=== PATIENT | female | born 1990 | race African-American/Black ===

== ENCOUNTER 2016-12-17 11:22 | Emergency (ER) | payer SELFPAY ==
[~2016-12-17] VITALS: Ht 172.7 cm; Wt 93.9 kg
[2016-12-17] MEDS ORDERED: IV NORMAL SALINE 1,000ML 1,000 ML IV SCH (12:30)
[2016-12-17 12:35] LABS: BASO % 1 % (0-3); EOS # 0.1 x10^3/uL (0.0-0.7); EOS % 1 % (0-3); HEMATOCRIT 38.3 % (36.0-47.0); HEMOGLOBIN 13.2 g/dL (12.0-15.5); LYMPH # 1.8 x10^3/uL (1.0-4.8); LYMPH % 25 % (24-48); MEAN CORPUSCULAR HEMOGLOBIN 30 pg (25-35); MEAN CORPUSCULAR HGB CONC 35 g/dL (31-37); MEAN CORPUSCULAR VOLUME 88 fL (79-100); MONO # 0.4 x10^3/uL (0.0-1.1); MONO % 6 % (0-9); NEUT # 4.7 x10^3uL (1.8-7.7); NEUT % 67 % (31-73); PLATELET COUNT 301 x10^3/uL (140-400); RED BLOOD COUNT 4.36 x10^6/uL (3.50-5.40); RED CELL DISTRIBUTION WIDTH 13.2 % (11.5-14.5)
[2016-12-17 12:48] LABS: ALBUMIN 4.5 g/dL (3.4-5.0); CALCIUM 9.3 mg/dL (8.5-10.1); CREATININE 0.9 mg/dL (0.6-1.0); DIRECT BILIRUBIN 0.3 mg/dL (0.0-0.2); GFR 91.6; TOTAL BILIRUBIN 2.1 mg/dL (0.2-1.0); TOTAL PROTEIN 7.6 g/dL (6.4-8.2)
--- NOTE | 2016-12-17 13:08 | RAD ---
Indication cramping and clotting. Positive home test. Initially transabdominal scans were obtained. Initial transabdominal scans were supplemented with transvaginal scans. No quantitative hCG value is available time of the interpretation of this exam. The uterus measures approximately 10.6 x 6.3 x 5.9 cm. Within the uterus there is a fluid collection compatible with a gestational sac and there is a probable yolk sac. No definite pole or cardiac motion is seen. The sac size is suggestive of a 6 week 5 day gestation. The maternal ovaries appeared unremarkable. IMPRESSION: Probable early IUP of approximately 6-7 weeks. No definite pole is identified. Correlation with a quantitative hCG value advised. Follow-up ultrasound in a week to 10 days should also be considered.
--- NOTE | 2016-12-17 13:15 | PHYS DOC ---
General Chief Complaint: VAGINAL BLEEDING Stated Complaint: VAGINAL BLEEDING Time Seen by MD: 12:03 Source: patient Exam Limitations: no limitations Problems: History of Present Illness Initial Comments Patient is a 26-year-old female who states she had a positive home test now with vaginal bleeding. Patient states she is now 3 para 2, positive home test several weeks ago has not followed up with STEAM DRIER OPERATOR. She thinks her last period was October 26 but is uncertain. She states that today she had sudden onset suprapubic cramping, and that she started passing bright red blood and clots. She claims intermittent episodes of low back discomfort none currently. Pain is described as achy, moderate at its worst no worsening or relieving factors noted. No headache palpitations chest pain or trouble breathing, patient has history of her coagulability with DVTs and prior pregnancies. She states she's not smoking and is taking vitamins. She has an STEAM DRIER OPERATOR but hasn't gotten in for evaluation yet. She is unable to quantify how many pads she is using with the vaginal bleeding and denies any bleeding actively in the emergency department. Timing/Duration: 24 hours Severity: moderate Modifying Factors: improves with other Associated Symptoms: other Allergies: Coded Allergies: No Known Drug Allergies (Unverified , 12/17/16) Past Medical History Medical History: other (DVT in ) Surgical History: noncontributory Para: 2 : 3 LMP (Females 10-50): Social History Smoker: non-smoker Alcohol: none Drugs: none Review of Systems Constitutional: denies chills, denies diaphoresis, denies fever, denies malaise EENTM: denies eye pain, denies blurred vision, denies ear pain, denies nose pain, denies throat pain Respiratory: denies cough, denies orthopnea, denies shortness of breath, denies wheezing Cardiovascular: denies chest pain, denies palpitations, denies syncope Gastrointestinal: see HPI, denies diarrhea, denies nausea, denies vomiting Genitourinary: see HPI Musculoskeletal: see HPI, denies joint swelling, denies neck pain Psychiatric/Neurological: denies headache, denies numbness, denies paresthesia Hematologic/Lymphatic: see HPI Physical Exam General Appearance: WD/WN, no apparent distress Ear, Nose, Throat: hearing grossly normal, normal ENT inspection Neck: non-tender, supple Respiratory: normal breath sounds, no respiratory distress Cardiovascular: normal peripheral pulses, regular rate, rhythm Gastrointestinal: normal bowel sounds, non tender, soft Back: no CVA tenderness, no vertebral tenderness Extremities: non-tender, normal inspection, no pedal edema 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 PHYSICIAN: DESIRAE MERCHANT DO REASON: LMP 09/26, pelvic/R adnexa pain, passing clots/bleeding PROCEDURE: OB <14 WKS W/TV Indication cramping and clotting. Positive home test. Initially transabdominal scans were obtained. Initial transabdominal scans were supplemented with transvaginal scans. No quantitative hCG value is available time of the interpretation of this exam. The uterus measures approximately 10.6 x 6.3 x 5.9 cm. Within the uterus there is a fluid collection compatible with a gestational sac and there is a probable yolk sac. No definite pole or cardiac motion is seen. The sac size is suggestive of a 6 week 5 day gestation. The maternal ovaries appeared unremarkable. IMPRESSION: Probable early IUP of approximately 6-7 weeks. No definite pole is identified. Correlation with a quantitative hCG value advised. Follow-up ultrasound in a week to 10 days should also be considered. DICTATED AND SIGNED BY: HOPE SANDERS MD DATE: 12/17/16 9010 CC: PCP,SONIA; DESIRAE MERCHANT DO ~ Labs unremarkable, serum hCG is consistent with ultrasound findings. No new or progressive symptoms throughout the ED course. Patient's vital signs remained stable she denied any further bleeding or discomfort while in the department. The patient was advised to follow-up with her STEAM DRIER OPERATOR, her questions were answered she expressed agreement and understanding of the treatment plan. Departure Time of Disposition: 13:24 Disposition: 01 HOME, SELF-CARE Diagnosis: , threatened miscarriage Condition: STABLE Patient Instructions: Medicines During , Threatened Miscarriage, Easy- to-Read Additional Instructions: Please review the patient education materials given to you by the ED staff. Rest, no strenuous activity. Pelvic rest until doctor follow-up. Aggressive hydration with Gatorade or water. [id number] Tylenol as needed. Continue vitamins. You must follow-up with an STEAM DRIER OPERATOR specialist. Call to schedule STEAM DRIER OPERATOR follow-up in the next 7-10 days for recheck of symptoms and ultrasound. Return to ED with new or changing symptoms. DESIRAE MERCHANT DO Dec 17, 2016 13:15
[2016-12-17 14:00] VITALS: BP 121/69
== END 2016-12-17 14:05 | disposition home or self-care (01) ==
LOC: ER 11:22
DX: O20.0 Threatened abortion (principal); Z3A.01 Less than 8 weeks gestation of pregnancy
CPT/HCPCS: 36415; 76801; 76817; 80048; 80076; 81025; 84702; 85025; 99285-25

== ENCOUNTER 2016-12-19 12:46 | Emergency (ER) | payer SELFPAY ==
[2016-12-19 13:15] VITALS: BP 128/97
[2016-12-19 13:46] LABS: HEMOGLOBIN ISTAT 11.6 gm/dL; POTASSIUM ISTAT 3.9 mmol/L (3.5-5.0)
--- NOTE | 2016-12-19 14:23 | PHYS DOC ---
General Chief Complaint: VAGINAL BLEEDING Stated Complaint: VAGINAL BLEEDING, PREG Time Seen by MD: 12:59 Source: patient, old records Exam Limitations: no limitations Problems: History of Present Illness Initial Comments Patient is a 26-year-old female returning to the ED complaining of first trimester bleeding. Patient is 3 para 2 her last menstrual period was either late September or October. She began spotting several days ago and was seen at this facility on December 17. At that time her hemoglobin was 13.2, hCG was 28,662. Ultrasound revealed probable early intrauterine of 6-7 weeks gestation no pole noted. Repeat ultrasound was indicated. Patient states that she's been spotting and cramping as she was 2 days ago until this morning when she felt warmth on her leg and noticed an increase in bleeding going through the pad and soiling her jeans. No increase in discomfort , no passed tissue that she knows of. She says she was using "light" pads but now thinks she may have to increase. She's had no chest pain dyspnea on exertion headache palpitations vision changes or other findings associated with anemia. She denies any fever chills sweats or myalgias and other than the bleeding and mild cramping has overall been feeling well. Timing/Duration: 1-3 hours Severity: moderate Modifying Factors: improves with other Associated Symptoms: other Allergies: Coded Allergies: No Known Drug Allergies (Unverified , 12/17/16) Past Medical History Medical History: other Surgical History: noncontributory Para: 2 : 3 LMP (Females 10-50): ( [facility]) Social History Smoker: non-smoker Alcohol: none Drugs: none Review of Systems Constitutional: denies chills, denies diaphoresis, denies fever, denies malaise Respiratory: denies cough, denies shortness of breath Cardiovascular: denies chest pain, denies palpitations, denies syncope Gastrointestinal: see HPI, denies diarrhea, denies nausea, denies vomiting Genitourinary: see HPI Musculoskeletal: denies back pain, denies joint swelling, denies neck pain Psychiatric/Neurological: denies headache, denies numbness, denies paresthesia Hematologic/Lymphatic: see HPI Physical Exam General Appearance: WD/WN, no apparent distress Ear, Nose, Throat: hearing grossly normal, normal ENT inspection, normal pharynx Neck: non-tender, supple Respiratory: normal breath sounds, no respiratory distress Cardiovascular: normal peripheral pulses, regular rate, rhythm Gastrointestinal: normal bowel sounds, non tender, soft Back: normal inspection, no CVA tenderness Extremities: non-tender, normal inspection, no pedal edema 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 Landry's office to consult with him on the patient's treatment. He is not in the office I discussed the patient with Dr. Landry's nurse Tricia. After thorough discussion and physician consultation they requested the patient be discharged home. The patient is to call [phone] upon discharge today to schedule next available office visit. I discussed this with the patient and advised her to take paper copies of her ultrasound report as well as her labs follow-up as directed. She expressed agreement and understanding of the treatment plan. Departure Time of Disposition: 14:18 Disposition: 01 HOME, SELF-CARE Diagnosis: 1st trimester miscarriage Condition: STABLE Patient Instructions: Miscarriage, Tidb-ya-Rryh Additional Instructions: Rest, no strenuous activity. Pelvic rest. Work and school excuse until PROBATE JUDGE follow-up appointment. Aggressive hydration with Gatorade or water. Heating pad as needed. Ynsk-whx-xzqzlgc ibuprofen 600 mg every 6 hours. Prescription: Tylenol #3 (20) take with food as directed. (take with food to avoid nausea, increase fluids and take OTC stool softeners to avoid constipation ). As discussed, you will need to follow up with your PROBATE JUDGE Dr Shree Landry. Per their instruction, please call [phone] today to discuss with Dr Landry' s RN Tricia. Return to ED with new or changing symptoms. DESIRAE MERCHANT DO Dec 19, 2016 14:23
[2016-12-19] MEDS ORDERED: ACET-704 PO (14:24)
[2016-12-19] MEDS ORDERED: ACETAMINOPHEN/CODEINE 300/30MG TABLET ONE (14:41)
[2016-12-19] MEDS ORDERED: ACETAMINOPHEN/CODEINE 300/30MG TABLET PO ONE (14:45)
== END 2016-12-19 14:49 | disposition home or self-care (01) ==
LOC: ER 12:46
DX: O03.9 Complete or unspecified spontaneous abortion without complication (principal)
CPT/HCPCS: 36415; 80047; 99283

== ENCOUNTER 2017-06-17 08:02 | Emergency (ER) | payer SELFPAY ==
[~2017-06-17] VITALS: Ht 172.7 cm; Wt 87.1 kg
[~2017-06-17 08:02] MED LIST: ACET-704 PO
[2017-06-17] MEDS ORDERED: IOHEXOL 300 MG/ML 75 ML VIAL. IV ONE (08:30)
[2017-06-17 08:34] LABS: BASO % 1 % (0-3); EOS # 0.1 x10^3/uL (0.0-0.7); EOS % 1 % (0-3); HEMATOCRIT 39.6 % (36.0-47.0); HEMOGLOBIN 13.6 g/dL (12.0-15.5); LYMPH # 1.7 x10^3/uL (1.0-4.8); LYMPH % 29 % (24-48); MEAN CORPUSCULAR HEMOGLOBIN 30 pg (25-35); MEAN CORPUSCULAR HGB CONC 34 g/dL (31-37); MEAN CORPUSCULAR VOLUME 87 fL (79-100); MONO # 0.4 x10^3/uL (0.0-1.1); MONO % 6 % (0-9); NEUT # 3.8 x10^3uL (1.8-7.7); NEUT % 64 % (31-73); PLATELET COUNT 244 x10^3/uL (140-400); RED BLOOD COUNT 4.57 x10^6/uL (3.50-5.40); WHITE BLOOD COUNT 5.9 x10^3/uL (4.0-11.0)
[2017-06-17 08:44] LABS: ALBUMIN 4.1 g/dL (3.4-5.0); ALBUMIN/GLOBULIN RATIO 1.2 (1.0-1.7); CALCIUM 8.9 mg/dL (8.5-10.1); CREATININE 0.8 mg/dL (0.6-1.0); GFR 104.9; POTASSIUM 3.9 mmol/L (3.5-5.1); TOTAL BILIRUBIN 1.3 mg/dL (0.2-1.0); TOTAL PROTEIN 7.5 g/dL (6.4-8.2)
[2017-06-17] MEDS ORDERED: MORPHINE SULFATE 4 MG/ML DISP.SYRIN. IV/SQ PRN (09:00)
--- NOTE | 2017-06-17 09:09 | RAD ---
CTA chest with contrast Indication: HX PE, SOA and chest pain this AM. Pt states same feeling as last episode. No surgery to chest or prior imaging here. Pt shielded, Omni 300 75ml . Comparison: No comparison is available. Technique: After bolus of intravenous contrast, CT imaging was performed of the chest. MIP reconstructions were obtained. Exposure: One or more of the following individualized dose reduction techniques were utilized for this examination: 1. Automated exposure control 2. Adjustment of the mA and/or kV according to patient size 3. Use of iterative reconstruction technique. Findings: Pulmonary arteries:No evidence of pulmonary embolism. Thoracic aorta: No evidence of an aneurysm or dissection. Great vessel origins:Patent Thyroid gland:Visualized aspect is unremarkable. Lymph nodes:No significant enlargement Heart: Appears enlarged Pleural spaces: No significant effusion Lungs: There is some ill-defined opacity in the posterior inferior aspect of the right lower lobe. This may represent some focal atelectasis or infiltrate. Trachea and central airways: Patent Bones: No destructive process Upper abdomen: Slices were obtained through the upper abdomen, but are of limited usefulness due to technique.No obvious acute findings. Impression: 1. Negative for pulmonary embolism. 2. The heart size appears enlarged. 3. Focal opacity in the posterior right lower lobe, most likely atelectasis or pneumonia. Recommend follow-up after acute treatment to document resolution. Electronically signed by: Flaco Hampton MD (06/17/2017 9:06 AM) [facility]
--- NOTE | 2017-06-17 09:17 | PHYS DOC ---
General Chief Complaint: CHEST PAIN Stated Complaint: CHEST PAIN Time Seen by MD: 08:04 Source: patient Exam Limitations: no limitations Problems: History of Present Illness Initial Comments 26-year-old female brought to the ED by EMS with right sided chest discomfort. Patient states that for the past day she's had discomfort at the posterolateral aspect of her right chest. She denies any fever chills sweats or myalgias, slight cough nonproductive. She has history of lupus and PEs, has been off of Lovenox due to a change in insurance. No anterior chest pain or dyspnea, no lower extremity swelling and no other complaints. Timing/Duration: 24 hours Severity: moderate Modifying Factors: improves with other Associated Symptoms: chest pain, cough Allergies: Coded Allergies: No Known Drug Allergies (Unverified , 12/17/16) Past Medical History Medical History: other (SLE, DVT) Surgical History: noncontributory Social History Smoker: non-smoker Alcohol: none Drugs: none Review of Systems Constitutional: denies chills, denies diaphoresis, denies fever, denies malaise EENTM: denies eye pain, denies ear pain, denies throat pain, denies mouth pain Respiratory: see HPI Cardiovascular: see HPI, denies palpitations, denies syncope Gastrointestinal: denies diarrhea, denies nausea, denies vomiting Musculoskeletal: denies back pain, denies joint swelling, denies neck pain Psychiatric/Neurological: denies headache, denies numbness, denies paresthesia Hematologic/Lymphatic: see HPI Physical Exam General Appearance: WD/WN, no apparent distress Ear, Nose, Throat: hearing grossly normal, normal ENT inspection Neck: non-tender, supple Respiratory: chest non-tender, no respiratory distress, no accessory muscle use , decreased breath sounds (right) Cardiovascular: normal peripheral pulses, regular rate, rhythm Gastrointestinal: non tender, soft Back: no CVA tenderness, no vertebral tenderness Extremities: non-tender, normal inspection, no calf tenderness 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 PHYSICIAN: TINO MERCHANT DO REASON: R CP, h/o SLE and PEs PROCEDURE: CT ANGIOGRAPHY CHEST CTA chest with contrast Indication: HX PE, SOA and chest pain this AM. Pt states same feeling as last episode. No surgery to chest or prior imaging here. Pt shielded, Omni 300 75ml . Comparison: No comparison is available. Technique: After bolus of intravenous contrast, CT imaging was performed of the chest. MIP reconstructions were obtained. Exposure: One or more of the following individualized dose reduction techniques were utilized for this examination: 1. Automated exposure control 2. Adjustment of the mA and/or kV according to patient size 3. Use of iterative reconstruction technique. Findings: Pulmonary arteries:No evidence of pulmonary embolism. Thoracic aorta: No evidence of an aneurysm or dissection. Great vessel origins:Patent Thyroid gland:Visualized aspect is unremarkable. Lymph nodes:No significant enlargement Heart: Appears enlarged Pleural spaces: No significant effusion Lungs: There is some ill-defined opacity in the posterior inferior aspect of the right lower lobe. This may represent some focal atelectasis or infiltrate. Trachea and central airways: Patent Bones: No destructive process Upper abdomen: Slices were obtained through the upper abdomen, but are of limited usefulness due to technique.No obvious acute findings. Impression: 1. Negative for pulmonary embolism. 2. The heart size appears enlarged. 3. Focal opacity in the posterior right lower lobe, most likely atelectasis or pneumonia. Recommend follow-up after acute treatment to document resolution. Electronically signed by: Ezekiel Hampton MD (06/17/2017 9:06 AM) [facility] DICTATED AND SIGNED BY: EZEKIEL HAMPTON MD DATE: 06/17/17 0859 CC: PCP,NO; TINO MERCHANT DO ~ I discussed activity modification, obiv-auh-[id number] prescription medications. Discussed close PCP follow-up as well as signs and symptoms to monitor and indications for urgent return to the department. Patient's questions were answered to her satisfaction she expressed agreement and understanding with the treatment plan. Departure Time of Disposition: 09:32 Disposition: 01 HOME, SELF-CARE Diagnosis: RLL Pneumonia, hypercoagulable state, SLE Condition: GOOD Patient Instructions: Lupus, Pneumonia, Adult, Ryfj-im-Ihln Additional Instructions: Please review the patient education materials given by ED staff. Off work through June 20. Ctgz-hcd-niegbev Tylenol and ibuprofen as needed. Prescription: Doxycycline, albuterol MDI, guaifenesin codeine syrup 200 MLs, Lovenox 40 mg (7 day supply) As discussed, there are several clinics locally which take walk-in appointments. Follow-up with a doctor in 7 days for recheck and to continue Lovenox treatment. Return to ED with new or changing symptoms. TINO MERCHANT DO Jun 17, 2017 09:17
[2017-06-17] MEDS ORDERED: DOXY100C2 PO (09:31)
[2017-06-17] MEDS ORDERED: ENOX40DI SQ (09:31)
[2017-06-17] MEDS ORDERED: CODE5LIQ PO (09:31)
[2017-06-17] MEDS ORDERED: ALBU8.5H8 INH (09:31)
[2017-06-17 09:52] VITALS: BP 126/84
== END 2017-06-17 09:57 | disposition home or self-care (01) ==
LOC: ER 08:02
DX: J18.1 Lobar pneumonia, unspecified organism (principal); D68.59 Other primary thrombophilia; M32.9 Systemic lupus erythematosus, unspecified; Z86.718 Personal history of other venous thrombosis and embolism
CPT/HCPCS: 36415; 71275; 80053; 84484; 85025; 85610; 85730; 96374; 99285; J2270; Q9967

== ENCOUNTER 2017-06-18 16:00 | Emergency (ER) | payer SELFPAY ==
[~2017-06-18 16:00] MED LIST changes: +ALBU8.5H8 INH; +CODE5LIQ PO; +DOXY100C2 PO; +ENOX40DI SQ
[2017-06-18] MEDS ORDERED: IV NORMAL SALINE 1,000ML 1,000 ML IV ONE (16:30)
[2017-06-18] MEDS ORDERED: LORazepam 1 MG TABLET PO ONE (16:30)
[2017-06-18] MEDS ORDERED: LORazepam 1 MG TABLET ONE (16:34)
[2017-06-18 16:48] LABS: BASO % 1 % (0-3); EOS # 0.1 x10^3/uL (0.0-0.7); EOS % 1 % (0-3); HEMATOCRIT 39.5 % (36.0-47.0); HEMOGLOBIN 13.5 g/dL (12.0-15.5); LYMPH # 2.4 x10^3/uL (1.0-4.8); LYMPH % 32 % (24-48); MEAN CORPUSCULAR HEMOGLOBIN 30 pg (25-35); MEAN CORPUSCULAR HGB CONC 34 g/dL (31-37); MEAN CORPUSCULAR VOLUME 87 fL (79-100); MONO # 0.4 x10^3/uL (0.0-1.1); MONO % 6 % (0-9); NEUT # 4.5 x10^3uL (1.8-7.7); NEUT % 61 % (31-73); PLATELET COUNT 253 x10^3/uL (140-400); RED BLOOD COUNT 4.56 x10^6/uL (3.50-5.40); RED CELL DISTRIBUTION WIDTH 14.1 % (11.5-14.5); WHITE BLOOD COUNT 7.4 x10^3/uL (4.0-11.0)
--- NOTE | 2017-06-18 16:57 | PHYS DOC ---
Past History Past Medical History: DVT, Other Past Surgical History: No Surgical History Alcohol Use: None Drug Use: None Adult General Chief Complaint Chief Complaint: CHEST PAIN HPI HPI 26-year-old female with history of lupus and PE presenting to the emergency department today with chest pain. She was seen yesterday where she received an angiography blood work and EKG. She was started on Lovenox and doxycycline after her CT angiogram showed no evidence of pulmonary embolism but showed signs of atelectasis versus pneumonia. She presents today with worsening pain that is sharp shooting pain radiates to the arm and neck. She reports feeling anxious. The pain comes and goes. It is moderate. She denies any fevers or chills. Her pain was not improved by her inhaler that she was discharged home on. She denies any hemoptysis or unilateral leg swelling. She had been off anticoagulants for some period of time after having insurance issues. Pain was not sudden in onset. Past medical history Lupus and PE. Allergies none Social history denies smoking drinking or IV drug use. Review of systems is negative for abdominal pain. Positive for nausea with vomiting. Negative for diaphoresis fevers chills. all other ros is neg. ED course: 26-year-old female presenting to the emergency department today with chest pain after negative workup yesterday. On arrival she is afebrile with a normal heart rate. She is well-appearing and nontoxic appearing. Abdomen is soft nondistended nontender palpation without rebound tenderness or guarding. Lungs are clear to auscultation bilaterally without any wheezing. No murmur present on auscultation of the heart. Palpable pulse in all extremities. EKG obtained and reviewed by myself shows sinus rhythm with a regular rate. Not consistent with ACS. Normal axis. No previous for comparison at this time. The patient received oral Ativan for her anxiety in the emergency room. Blood work was obtained along with duplex ultrasound venous of both legs bilaterally. Blood work shows mildly elevated bilirubin. Troponin negative. test positive. CBC unremarkable. Patient denied being initially and was surprised when I informed her that her test was positive. I recommended to the patient that she stop taking doxycycline. We will add on a beta hCG quantitative along with Rh and an ultrasound of the pelvis to evaluate this further. These additional tests along with the venous duplex of bilateral legs pending at the time of sign out around 6 PM. The patient was then signed out to Dr. Pandey follow up on these tests and reevaluate the patient. Review of Systems Review of Systems above Current Medications Current Medications Current Medications Medications (Trade) Dose Ordered Sig/Bradley Start Time Stop Time Status Last Admin Dose Admin Lorazepam (Ativan) 1 mg 1X ONCE 06/18/17 16:30 06/18/17 16:36 DC 06/18/17 16:36 1 MG Sodium Chloride 1,000 ml @ 1,000 mls/hr 1X ONCE 06/18/17 16:30 06/18/17 17:29 06/18/17 16:38 1,000 MLS/HR Allergies Allergies Allergies Coded Allergies Type Severity Reaction Last Updated Verified No Known Drug Allergies 12/17/16 No Physical Exam Physical Exam Constitutional: Well developed, well nourished, no acute distress, non-toxic appearance. [] HENT: Normocephalic, atraumatic, bilateral external ears normal, oropharynx moist, no oral exudates, nose normal. [] Eyes: PERRLA, EOMI, conjunctiva normal, no discharge. [] Neck: Normal range of motion, no tenderness, supple, no stridor. [] Cardiovascular:Heart rate regular rhythm, no murmur [] Lungs & Thorax: Bilateral breath sounds clear to auscultation [] Abdomen: Bowel sounds normal, soft, no tenderness, no masses, no pulsatile masses. [] Skin: Warm, dry, no erythema, no rash. [] Back: No tenderness, no CVA tenderness. [] Extremities: No tenderness, no cyanosis, no clubbing, ROM intact, no edema. palpable pulses in all extremities. Neurologic: Alert and oriented X 3, normal motor function, normal sensory function, no focal deficits noted. [] Psychologic: Affect normal, judgement normal, mood normal. [] Current Patient Data Vital Signs Vital Signs Date Time Temp Pulse Resp B/P (MAP) Pulse Ox O2 Delivery O2 Flow Rate FiO2 06/18/17 16:10 98.2 89 16 100 Room Air EKG EKG [] Radiology/Procedures Radiology/Procedures [] Course & Med Decision Making Course & Med Decision Making Pertinent Labs and Imaging studies reviewed. (See chart for details) [] Dragon Disclaimer Dragon Disclaimer This electronic medical record was generated, in whole or in part, using a voice recognition dictation system. Departure Departure: Impression: Primary Impression: Chest pain Referrals: PCP,SONIA (PCP) BENJY HUI MD Jun 18, 2017 16:57
[2017-06-18 17:02] LABS: ALBUMIN 4.3 g/dL (3.4-5.0); CALCIUM 9.1 mg/dL (8.5-10.1); CREATININE 0.8 mg/dL (0.6-1.0); DIRECT BILIRUBIN 0.2 mg/dL (0.0-0.2); GFR 104.9; POTASSIUM 3.8 mmol/L (3.5-5.1); TOTAL BILIRUBIN 1.2 mg/dL (0.2-1.0); TOTAL PROTEIN 7.7 g/dL (6.4-8.2)
[2017-06-18 17:06] LABS: PREG TEST PT QUAL POSITIVE (NEG)
[2017-06-18] MEDS ORDERED: KETOROLAC 15 MG/ML VIAL. IV ONE (17:30)
--- NOTE | 2017-06-18 18:10 | RAD ---
Bilateral lower extremity venous doppler ultrasound History: Chest pain and syncope Comparison: None Findings: Multiple grayscale, color, and duplex spectral analysis sonographic images were acquired of the bilateral lower extremity veins to evaluate for the presence of DVT. There is normal phasicity. Normal compression, color-flow, and augmentation is demonstrated from the bilateral common femoral to the popliteal veins. There is normal color flow of the proximal greater saphenous and profunda femoris veins. There is normal color flow of segments of the calf veins. Impression: 1. There is no evidence of deep venous thrombosis from the bilateral common femoral to popliteal veins. Electronically signed by: Hal Downey MD (06/18/2017 6:07 PM) [facility]
--- NOTE | 2017-06-18 18:28 | EKG ---
[address] [address] Test Date: 2017-06-18 Test Time: 16:19:32 Pat Name: IZA SHORE Department: Room: Gender: F Interim Controller: ROSANNA : 1990 Requested By: BENJY HUI Order Number: [id number] Reading MD: Measurements Intervals [place] Rate: 75 P: 55 CO: 122 QRS: 45 QRSD: 84 T: 16 QT: 362 QTc: 407 Interpretive Statements SINUS RHYTHM QRS(T) CONTOUR ABNORMALITY CONSIDER ANTEROLATERAL MYOCARDIAL DAMAGE CONSIDER INFERIOR MYOCARDIAL DAMAGE POSSIBLY ABNORMAL ECG RI6.01 No previous ECG available for comparison
--- NOTE | 2017-06-18 18:47 | RAD ---
OB <14 WKS W/TV History: Cramping, pelvic pain in the left lower quadrant, positive test Comparison: None. Findings: Multiple transabdominal sonographic images of the pelvis are submitted. Uterus measured 9.7 x 4.9 x 5.1 cm. Endometrium measured 0.9 cm. Left ovary measured 3 x 3.9 x 3.5 cm. Right ovary measured 2 x 2 x 3.9 cm. Transvaginal ultrasound: Multiple transvaginal sonographic images of the pelvis are submitted. There is a small to moderate quantity of simple free fluid in the cul-de-sac. Uterus measured 10.8 x 5 x 5.5 cm. Endometrium is thickened up to 1.6 cm. Left ovary measured 3.5 x 2.3 x 4.8 cm. There is a focus of different echogenicity with internal echoes of the left ovary, 1.3 x 1.3 x 1.4 cm in size, not associated with significant hypervascularity on color Doppler imaging. There is normal low resistance vascularity of the left ovary. Right ovary measured 2.3 x 2 x 3.9 cm, normal low resistance vascularity. No intrauterine gestational sac is identified. There are nabothian cysts. There is some fluid in the endometrial cavity. Impression: 1. No intrauterine gestational sac is demonstrated. There is some thickening of the endometrium. There is nonspecific simple free fluid in the cul-de-sac. There is a focus of different echogenicity of the left ovary which may be due to partially collapsed or hemorrhagic cyst up to 1.4 cm, ectopic considered less likely given lack of significant hypervascularity. Close interval follow-up imaging and correlation with beta hCG values may be beneficial. Electronically signed by: Hal Downey MD (06/18/2017 6:44 PM) [facility]
[2017-06-18 19:22] VITALS: BP 127/87
== END 2017-06-18 19:25 | disposition home or self-care (01) ==
LOC: ER 16:00
DX: R07.9 Chest pain, unspecified (principal); R11.2 Nausea with vomiting, unspecified; Z33.1 Pregnant state, incidental; Z86.718 Personal history of other venous thrombosis and embolism
CPT/HCPCS: 36415; 76801; 76817; 80048; 80076; 83690; 84484; 84702; 84703; 85025; 86901; 93005; 93970; 96360; 99285-25; J7030

== ENCOUNTER 2017-08-23 22:01 | Emergency (ER) | payer SELFPAY ==
[~2017-08-23] VITALS: Ht 172.7 cm; Wt 100.2 kg
[2017-08-23 22:01] VITALS: BP 104/54
--- NOTE | 2017-08-23 22:05 | ED.ADGEN ---
Past History Past Medical History: DVT, Other Past Surgical History: No Surgical History Alcohol Use: None Drug Use: None Adult General Chief Complaint Chief Complaint ".. I having really bad dental pain.. here " ( tooth 5).. I know I got bad teeth... but I have a dental apt..." [facility] HPI Patient is a 26 year old female who presents with above hx with complaints of dental and abd. pain. Pt. states pain started in abd. after taking 4 Ibuprofen every few hours to day because of dental pain. Pt. has no trismus. No hx . of immunosuppression. No travel or ill contacts. Pt. rates pain as /10. No pointing abscess appreciated. Review of Systems Review of Systems Constitutional: Denies fever or chills [] Eyes: Denies change in visual acuity, redness, or eye pain [] HENT: Denies nasal congestion or sore throat []Complaints of dental pain. Respiratory: Denies cough or shortness of breath [] Cardiovascular: No additional information not addressed in HPI [] GI: complaints of epigastric abdominal pain. Denies nausea, vomiting, bloody stools or diarrhea []Complaints of gastritis : Denies dysuria or hematuria [] Musculoskeletal: Denies back pain or joint pain [] Integument: Denies rash or skin lesions [] Neurologic: Denies headache, focal weakness or sensory changes [] Endocrine: Denies polyuria or polydipsia [] All other systems were reviewed and found to be within normal limits, except as documented in this note. Family History Family History Non-contributory Current Medications Current Medications Current Medications Medications (Trade) Dose Ordered Sig/Bradley Start Time Stop Time Status Last Admin Dose Admin Cephalexin HCl (Keflex) 500 mg 1X ONCE 08/23/17 22:45 08/23/17 22:46 DC 08/23/17 23:06 500 MG Famotidine (Pepcid) 20 mg 1X ONCE 08/23/17 22:45 08/23/17 22:46 DC 08/23/17 23:06 20 MG Ketorolac Tromethamine (Toradol) 60 mg 1X ONCE 08/23/17 22:45 08/23/17 22:46 DC 08/23/17 23:06 60 MG Allergies Allergies Allergies Coded Allergies Type Severity Reaction Last Updated Verified No Known Drug Allergies 12/17/16 No Physical Exam Physical Exam Constitutional: Well developed, well nourished, no acute distress, non-toxic appearance. [] HENT: Normocephalic, atraumatic, bilateral external ears normal, oropharynx moist, no oral exudates, nose normal. []Localized pain to tooth 5. Multiple dental caries. Eyes: PERRLA, EOMI, conjunctiva normal, no discharge. [] Neck: Normal range of motion, no tenderness, supple, no stridor. [] Cardiovascular:Heart rate regular rhythm, no murmur [] Lungs & Thorax: Bilateral breath sounds equal at apex on auscultation [] Abdomen: Bowel sounds normal, soft, no tenderness, no masses, no pulsatile masses. [] Skin: Warm, dry, no erythema, no rash. [] Back: No tenderness, no CVA tenderness. [] Extremities: No tenderness, no cyanosis, no clubbing, ROM intact, no edema. [] Neurologic: Alert and oriented X 3, normal motor function, normal sensory function, no focal deficits noted. [] Psychologic: Affect normal, judgement normal, mood normal. [] Current Patient Data Vital Signs Vital Signs Date Time Temp Pulse Resp B/P (MAP) Pulse Ox O2 Delivery O2 Flow Rate FiO2 08/23/17 22:01 97.9 65 20 100 Room Air Lab Results Laboratory Tests Test 08/23/17 21:29 POC Urine HCG, Qualitative hcg negative (Negative) EKG EKG [] Radiology/Procedures Radiology/Procedures [] Course & Med Decision Making Course & Med Decision Making Pertinent Labs and Imaging studies reviewed. (See chart for details). Must see a dentist. Take Percocet for severe pain. Zantac 150 twice a day. Keflex 500 three times a day. Must follow up. Further narcotics must be filled by primary or dentist. [] Final Impression Final Impression 1. Dental Pain 2. Abd. Pain[]- Gastritis Dragon Disclaimer Dragon Disclaimer This electronic medical record was generated, in whole or in part, using a voice recognition dictation system. MILTON CHAPA MD August 23, 2017 22:05
[2017-08-23] MEDS ORDERED: CEPH-264 PO (22:36)
[2017-08-23] MEDS ORDERED: RANI150T21 PO (22:37)
[2017-08-23] MEDS ORDERED: OXYC-323 PO (22:38)
[2017-08-23] MEDS ORDERED: CEPHALEXIN 250 MG CAPSULE PO ONE (22:45)
[2017-08-23] MEDS ORDERED: FAMOTIDINE 20 MG TABLET PO ONE (22:45)
[2017-08-23] MEDS ORDERED: KETOROLAC 60 MG/2 ML VIAL. IM ONE (22:45)
== END 2017-08-23 23:06 | disposition home or self-care (01) ==
LOC: ER 22:01
DX: K08.89 Other specified disorders of teeth and supporting structures (principal); K29.70 Gastritis, unspecified, without bleeding; Z86.718 Personal history of other venous thrombosis and embolism
CPT/HCPCS: 81025; 96372; 99283; J1885

== ENCOUNTER 2017-09-20 15:24 | Emergency (ER) | payer SELFPAY ==
[~2017-09-20] VITALS: Ht 167.6 cm; Wt 100.2 kg
[~2017-09-20 15:24] MED LIST changes: +CEPH-264 PO; +OXYC-323 PO; +RANI150T21 PO
[2017-09-20 15:29] VITALS: BP 104/54
[2017-09-20] MEDS ORDERED: ACET-704 PO (15:51)
[2017-09-20] MEDS ORDERED: PENI500T PO (15:51)
--- NOTE | 2017-09-20 15:54 | PHYS DOC ---
Past History Past Medical History: DVT, Other Past Surgical History: No Surgical History Smoking: Non-smoker Alcohol Use: None Drug Use: None Adult General Chief Complaint Chief Complaint: DENTAL PROBLEM [facility] HPI 26-year-old nonsmoking female patient complaining of right upper jaw and tooth pain for the last 2 weeks after she has a broken tooth in because of insurance problem was not able to see her dentist. Patient states she took over-the- counter Advil and arthritis medication without improvement of her pain. Patient complaining of pain in right side of her face that getting worse with chewing and talking. Patient denies fever and chills, nausea and vomiting, . Review of Systems Review of Systems Constitutional: Denies fever or chills [] Eyes: Denies change in visual acuity, redness, or eye pain [] HENT: Denies nasal congestion or sore throat [] Respiratory: Denies cough or shortness of breath [] Cardiovascular: No additional information not addressed in HPI [] GI: Denies abdominal pain, nausea, vomiting, bloody stools or diarrhea [] : Denies dysuria or hematuria [] Musculoskeletal: Denies back pain or joint pain [] Integument: Denies rash or skin lesions [] Neurologic: Denies headache, focal weakness or sensory changes [] Endocrine: Denies polyuria or polydipsia [] All other systems were reviewed and found to be within normal limits, except as documented in this note. Allergies Allergies Allergies Coded Allergies Type Severity Reaction Last Updated Verified No Known Drug Allergies 12/17/16 No Physical Exam Physical Exam Constitutional: Well developed, well nourished, mild distress, non-toxic appearance. [] HENT: Normocephalic, atraumatic, bilateral external ears normal, oropharynx moist, no oral exudates, nose normal, right upper incisor tooth with tenderness and cavity without sign of abscess. [] Eyes: PERRLA, EOMI, conjunctiva normal, no discharge. [] Neck: Normal range of motion, no tenderness, supple, no stridor. [] Cardiovascular:Heart rate regular rhythm, no murmur [] Lungs & Thorax: Bilateral breath sounds clear to auscultation [] Neurologic: Alert and oriented X 3, normal motor function, normal sensory function, no focal deficits noted. [] Psychologic: Affect normal, judgement normal, mood normal. [] EKG EKG [] Radiology/Procedures Radiology/Procedures [] Course & Med Decision Making Course & Med Decision Making Patient did not want to have pain medication in ER. I've spoken with the patient and/or caregivers. I've explained the patient's condition, diagnosis and treatment plan based on information available to me at this time. I've answered the patient's and/or caregivers questions and addressed any concerns. The patient and/or caregivers have a good understanding the patient's diagnosis, condition and treatment plan as can be expected at this point. Vital signs have been stabilized. The patient's condition is stable for discharge from the emergency department. The patient will pursue further outpatient evaluation with her primary care provider or other designated consulting physician as outlined in the discharge instructions. Patient and/or caregivers are agreeable to this plan of care and follow-up instructions have been explained in detail. The patient and/or caregivers have received these instructions in written format and expressed understanding of these discharge instructions. The patient and her caregivers are aware that if any significant change in condition or worsening of symptoms should prompt him to immediately return to this of the closest emergency department. If an emergent department is not readily available I would encourage him to call 911. Dustin Disclaimer Dragon Disclaimer This electronic medical record was generated, in whole or in part, using a voice recognition dictation system. Departure Departure: Impression: Primary Impression: Dentalgia Disposition: HOME, SELF-CARE (At 1547) Condition: STABLE Referrals: SANIYA DE DIOS MD (PCP) Patient Instructions: Dental Caries, Toothache-Brief Additional Instructions: Follow up with your dentist in 5-7 days Follow-up with your primary care physician in 3-5 days Return to ER if not getting better Scripts Penicillin V Potassium (PENICILLIN V POTASSIUM) 500 Mg Tablet 1 TAB PO QID, #40 TAB Prov: HIEU NOBLES MD 09/20/17 Acetaminophen With Codeine (TYLENOL WITH CODEINE #3 TABLET) 1 Each Tablet 1 TAB PO Q6HRS, #14 TAB Prov: HIEU NOBLES MD 09/20/17 HIEU NOBLES MD Sep 20, 2017 15:54
== END 2017-09-20 16:02 | disposition home or self-care (01) ==
LOC: ER 15:24
DX: K08.89 Other specified disorders of teeth and supporting structures (principal); Z86.718 Personal history of other venous thrombosis and embolism
CPT/HCPCS: 99283

== ENCOUNTER 2017-09-22 16:47 | Emergency (ER) | payer SELFPAY ==
[~2017-09-22] VITALS: Ht 167.6 cm; Wt 100.2 kg
[~2017-09-22 16:47] MED LIST changes: +PENI500T PO
[2017-09-22 17:03] VITALS: BP 123/90
--- NOTE | 2017-09-22 17:20 | EKG ---
[address] [address] Test Date: 2017-09-22 Test Time: 17:15:06 Pat Name: IZA SHORE Department: Room: Gender: F Clinical Trial Specialist: ROMI : 1990 Requested By: RAYRAY VARGAS Order Number: [id number] Reading MD: Nicolas Garcia MD Measurements Intervals [place] Rate: 69 P: 54 TN: 122 QRS: 44 QRSD: 90 T: 10 QT: 366 QTc: 394 Interpretive Statements SINUS RHYTHM ATRIAL PREMATURE COMPLEX(ES) Electronically Signed On 09-23-2017 8:50:54 CDT by Nicolas Garcia MD
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
[2017-09-22 17:51] LABS: BASO % 0 % (0-3); EOS % 0 % (0-3); HEMATOCRIT 40.2 % (36.0-47.0); HEMOGLOBIN 13.6 g/dL (12.0-15.5); LYMPH # 1.2 x10^3/uL (1.0-4.8); LYMPH % 12 % (24-48); MEAN CORPUSCULAR HEMOGLOBIN 30 pg (25-35); MEAN CORPUSCULAR HGB CONC 34 g/dL (31-37); MEAN CORPUSCULAR VOLUME 88 fL (79-100); MONO # 0.5 x10^3/uL (0.0-1.1); MONO % 5 % (0-9); NEUT % 82 % (31-73); PLATELET COUNT 254 x10^3/uL (140-400); RED BLOOD COUNT 4.56 x10^6/uL (3.50-5.40); RED CELL DISTRIBUTION WIDTH 13.4 % (11.5-14.5); WHITE BLOOD COUNT 9.7 x10^3/uL (4.0-11.0)
[2017-09-22 17:57] LABS: U PREG PATIENT NEGATIVE (NEG)
[2017-09-22 17:59] LABS: BARBITURATES NEG (NEG); BENZODIAZEPINES NEG (NEG); CANNABINOIDS POS (NEG); COCAINE NEG (NEG); METHADONE NEG (NEG); OPIATES POS (NEG); PHENCYCLIDINE NEG (NEG)
[2017-09-22 18:00] LABS: AMPHETAMINE/METHAMPHETAMINE NEG (NEG)
[2017-09-22 18:03] LABS: ACETAMIN < 2.0 mcg/mL (10-30); ALBUMIN 4.4 g/dL (3.4-5.0); DIRECT BILIRUBIN 0.2 mg/dL (0.0-0.2); ETHANOL < 10 mg/dL (0-10); SALIC < 0.2 mg/dL (2.8-20.0); TOTAL BILIRUBIN 1.3 mg/dL (0.2-1.0)
[2017-09-22] MEDS ORDERED: oxyCODONE/APAP 7.5/325 1 TAB TABLET PO ONE (18:30)
[2017-09-22 18:57] LABS: CALCIUM 9.1 mg/dL (8.5-10.1); CREATININE 0.9 mg/dL (0.6-1.0); GFR 91.6; POTASSIUM 3.7 mmol/L (3.5-5.1)
[2017-09-23 13:45] LABS: FREE T4 0.79 ng/dL (0.76-1.46); THYROID STIM HORMONE (TSH) 1.997 uIU/mL (0.358-3.740)
== END 2017-09-22 22:12 | disposition home or self-care (01) ==
LOC: ER 16:47
DX: F41.9 Anxiety disorder, unspecified (principal); F32.9 Major depressive disorder, single episode, unspecified; R45.851 Suicidal ideations; Z86.718 Personal history of other venous thrombosis and embolism
CPT/HCPCS: 36415; 80048; 80076; 80307; 81025; 84439; 84443; 85025; 93005; 99285; G0480; G6039; 82003; G0479

== ENCOUNTER 2017-11-24 12:34 | Emergency (ER) | payer SELFPAY ==
[~2017-11-24] VITALS: Ht 172.7 cm; Wt 91.6 kg
[2017-11-24] MEDS ORDERED: LORazepam 2 MG/ML VIAL IM ONE (13:00)
--- NOTE | 2017-11-24 13:31 | PHYS DOC ---
Past History Past Medical History: Anxiety, Depression, DVT, Other Past Surgical History: No Surgical History Smoking: Non-smoker Alcohol Use: None Drug Use: None Adult General Chief Complaint Chief Complaint: SHORTNESS OF BREATH HPI HPI 26-year-old female patient with history of anxiety brought in by EMS because of shortness of breath and panic attack after she was pulled over by police. Patient complaining of nausea and dizziness and palpitation with shortness of breath. Patient state she had episodes of anxiety but doesn't medication at this time. Patient denies and using drugs. Review of Systems Review of Systems Constitutional: Denies fever or chills [] Eyes: Denies change in visual acuity, redness, or eye pain [] HENT: Denies nasal congestion or sore throat [] Respiratory: Force shortness of breath Cardiovascular: No additional information not addressed in HPI [] GI: Denies abdominal pain, vomiting, bloody stools or diarrhea [] : Denies dysuria or hematuria [] Musculoskeletal: Denies back pain or joint pain [] Integument: Denies rash or skin lesions [] Neurologic: Denies headache, focal weakness or sensory changes [] Endocrine: Denies polyuria or polydipsia [] All other systems were reviewed and found to be within normal limits, except as documented in this note. Current Medications Current Medications Current Medications Medications (Trade) Dose Ordered Sig/Bradley Start Time Stop Time Status Last Admin Dose Admin Lorazepam (Ativan) 1 mg 1X ONCE 11/24/17 13:00 11/24/17 13:01 DC 11/24/17 13:05 1 MG Allergies Allergies Allergies Coded Allergies Type Severity Reaction Last Updated Verified No Known Drug Allergies 12/17/16 No Physical Exam Physical Exam Constitutional: Well developed, well nourished,moderate distress, non-toxic appearance, very anxious with hyperventilation. [] HENT: Normocephalic, atraumatic Eyes: PERRLA, EOMI, conjunctiva normal, no discharge. [] Neck: Normal range of motion, no tenderness, supple, no stridor. [] Cardiovascular:Heart rate regular rhythm, no murmur [] Lungs & Thorax: Bilateral breath sounds clear to auscultation [] Abdomen: Bowel sounds normal, soft, no tenderness, no masses, no pulsatile masses. [] Skin: Warm, dry, no erythema, no rash. [] Back: No tenderness, no CVA tenderness. [] Extremities: No tenderness, no cyanosis, no clubbing, ROM intact, no edema. [] Neurologic: Alert and oriented X 3, normal motor function, normal sensory function, no focal deficits noted. [] Psychologic: Affect anxious and tearful, judgement normal, mood normal. [] Current Patient Data Vital Signs Vital Signs Date Time Temp Pulse Resp B/P (MAP) Pulse Ox O2 Delivery O2 Flow Rate FiO2 11/24/17 12:56 99.0 95 30 100 Room Air EKG EKG [] Radiology/Procedures Radiology/Procedures [] Course & Med Decision Making Course & Med Decision Making Evaluation of patient in ER showed 26-year-old female patient with anxiety attack and hyperventilation after pulled over by police. Patient gradually improved dose of Ativan IM. Patient denied suicidal and homicidal ideation. Patient instructed to follow-up with her primary care physician regarding anxiety and panic attack. Dragon Disclaimer Dragon Disclaimer This electronic medical record was generated, in whole or in part, using a voice recognition dictation system. Departure Departure: Impression: Primary Impression: Panic attack Additional Impression: Hyperventilation Disposition: HOME, SELF-CARE (at 1330) Condition: IMPROVED Referrals: SANIYA DE DIOS MD (PCP) Patient Instructions: Anxiety and Panic Attacks, Hyperventilation Additional Instructions: Drink plenty of liquids Follow-up with your primary care physician in 3-5 days Return to ER if not getting better Problem Qualifiers HIEU NOBLES MD Nov 24, 2017 13:31
[2017-11-24 13:37] VITALS: BP 129/83
== END 2017-11-24 13:41 | disposition home or self-care (01) ==
LOC: ER 12:34
DX: F41.0 Panic disorder [episodic paroxysmal anxiety] (principal); R06.4 Hyperventilation; Z86.718 Personal history of other venous thrombosis and embolism
CPT/HCPCS: 96372; 99284; J2060